=== PATIENT | male | born 2000 | race Caucasian/White ===

== ENCOUNTER 2020-03-16 13:31 | Emergency (ER) | payer MEDICAID ==
[~2020-03-16] VITALS: Ht 154.9 cm; Wt 53.6 kg
[2020-03-16 14:06] VITALS: BP 113/68
--- NOTE | 2020-03-16 17:21 | NUR ---
Patient called back x3 and not in lobby. Attempted to call patient, no listed phone number.
== END 2020-03-16 17:21 | disposition left against medical advice (07) ==
LOC: ER 13:32
DX: S61.212A Laceration without foreign body of right middle finger without damage to nail, initial encounter (principal); S61.214A Laceration without foreign body of right ring finger without damage to nail, initial encounter; Z53.21 Procedure and treatment not carried out due to patient leaving prior to being seen by health care provider; X58.XXXA Exposure to other specified factors, initial encounter; Y93.89 Activity, other specified; Y92.89 Other specified places as the place of occurrence of the external cause; Y99.8 Other external cause status

== ENCOUNTER 2020-03-22 00:29 | Emergency (ER) | payer MEDICAID ==
[~2020-03-22] VITALS: Ht 177.8 cm; Wt 61.4 kg
[2020-03-22] MEDS ORDERED: SULF1TAB49 PO (00:59)
[2020-03-22] MEDS ORDERED: sulfamethoxazole/trimethoprim DS (800/160mg) tablet PO ONE (01:00)
[2020-03-22 01:08] VITALS: BP 117/81
== END 2020-03-22 01:10 | disposition home or self-care (01) ==
LOC: ER 00:29
DX: S61.212A Laceration without foreign body of right middle finger without damage to nail, initial encounter (principal); S61.214A Laceration without foreign body of right ring finger without damage to nail, initial encounter; L03.113 Cellulitis of right upper limb; W22.8XXA Striking against or struck by other objects, initial encounter; Y93.89 Activity, other specified; Y92.89 Other specified places as the place of occurrence of the external cause; Y99.9 Unspecified external cause status
CPT/HCPCS: 99283

== ENCOUNTER 2022-05-02 11:42 | Emergency (ER) | payer MEDICAID ==
[~2022-05-02] VITALS: Ht 177.8 cm; Wt 61.4 kg
[2022-05-02 11:43] VITALS: BP 129/76
[2022-05-02 12:06] LABS: CLARITY,URINE TURBID (Clear); COLOR,URINE YELLOW (Yellow); GLUCOSE, URINE NEGATIVE (Neg); KETONES,URINE NEGATIVE (Neg); LEUKOCYTE ESTERASE ,URINE LARGE (Neg); NITRITES, URINE NEGATIVE (Neg); OCCULT BLOOD,URINE LARGE (Neg); PROTEIN,URINE 100 mg/dl (Neg); UROBILINOGEN,URINE 0.2 E.U/dL (0.2-1.0)
[2022-05-02 12:24] LABS: UA COLLECTION TYPE VOIDED
[2022-05-02 12:27] LABS: BACTERIA,URINE 1+ /HPF (Neg); WBC,URINE TNTC /HPF (0-4)
[2022-05-02 12:28] LABS: SQUAMOUS EPITHELIAL CELL,UR FEW /LPF (FEW); WBC CLUMPS,URINE MANY /HPF (NEGATIVE)
== END 2022-05-02 14:27 | disposition left against medical advice (07) ==
LOC: ER 11:42
DX: N39.0 Urinary tract infection, site not specified (principal); Z53.21 Procedure and treatment not carried out due to patient leaving prior to being seen by health care provider
CPT/HCPCS: 81001; 87077; 87088; 87186

== ENCOUNTER 2025-08-10 12:16 | Emergency (ER) | payer MEDICAID ==
[~2025-08-10] VITALS: Ht 180.3 cm; Wt 60.5 kg
[2025-08-10 12:56] VITALS: BP 137/95; PULSE 99; RESP 18; TEMP 97.8; O2SAT 100
[2025-08-10] MEDS ORDERED: CEPH-585 PO (14:15)
[2025-08-10] MEDS ORDERED: SULF1TAB49 PO (14:15)
[2025-08-10] MEDS ORDERED: MUPI22OI30 TOP (14:15)
[2025-08-10] MEDS ORDERED: CHLO118L3 TOP (14:15)
--- NOTE | 2025-08-10 14:15 | Physician Documentation ---
History of Present Illness ~ Chief Complaint: Abscess Stated Complaint: CELLULITIS Time Seen by MD: 14:05 OK to notify your PCP?: Yes Primary Medical Doctor: None Source: patient Mode of Arrival: POV Exam Limitations: no limitations HPI This is a 24-year-old male who comes in for multiple wounds with the bilateral hands. The patient states he has been getting these lately and they do not seem to be healing as fast as he would expect. He is not complaining of any significant pain. He says he does get purulent discharge from the wounds. He denies fevers or chills. Aside from the hands he denies any other area with wounds. Tetanus Within 5 Years: No Medication Reconciliation Allergies: Coded Allergies: No Known Allergies (Unverified , 08/10/25) Past Medical History Past Medical History: No Pertinent History Past Surgical History: no surgical history Lives In: Home Physical Exam Vital Signs: Temperature: 97.8, Source: Temporal, Heart Rate: 99, Respiratory Rate: 18, BP: 137/95, Pulse Oximetry: 100, Weight: 60.500 Pulse Oximetry Reflects: adequate oxygenation General Appearance: alert, WD/WN, no apparent distress EENT: normal ENT inspection Skin To inspection of the hands the patient has a few superficial appearing furuncles. The patient has liquid bandages placed over the top of them. They all feel firm. There and various stages of healing. No obvious fluctuance or deep fluid collection that needs to be drained. No fusiform erythema edema of the fingers. No range of motion deficits of the fingers. Outer radial pulses are 2+ and cap refill less than 2 seconds and brisk in the digits of the bilateral upper extremities. Progress Results/Orders Reviewed/noted all lab results: Yes Results/Orders Vital Signs 08/10/25 12:56 Temp 97.8 Pulse 99 Resp 18 B/P (MAP) 137/95 Pulse Ox 100 Medical Decision Making Additional information obtaine: N/A Findings The patient's main issue in his hygiene. His clothes and hands or heavily soiled has a patient is homeless. I am going to prescribe him Bactroban to apply topically, chlorhexidine soap, Bactrim DS and Keflex. You can follow up with the primary care physician for recheck in the next one or two days and return to the ER if he has any worsening or concerning symptoms. Differential Dx:Considerations: Include: Abscess, Bacteremia, Cellulitis, Felon, Impetigo Additional Comment Cellulitis. Continues to abscess. Furuncle. Staph infection. Departure Disposition: HOME / SELF CARE / HOMELESS Impression: Primary Impression: Abscess Condition: Stable Discharge Instructions: Abscess, Care After Additional Instructions: I will prescribe chlorhexidine soap to wash the areas with the once or twice a day, apply the topical cream and take the oral antibiotics as prescribed. Try to keep your hands that has again cleaned as best you can. Follow up with the primary care physician for recheck in the next one or two days and return to the ER for any worsening or concerning symptoms. Referrals: NO PRIMARY CARE PROVIDER (PCP) Prescriptions Mupirocin* (Bactroban*) 22 Gm Tube 1 APPLIC TOP Q8H for 7 Days, #22 GM apply to affected area(s) Prov: YUMIKO GARCIA 08/10/25 Cephalexin*Monohydrate* (Keflex*) 500 Mg Capsule 1 CAP PO Q6H for 10 Days, #40 CAP Prov: YUMIKO GARCIA 08/10/25 Sulfamethoxazole/Trimethoprim (Bactrim Ds Tablet) 800 Mg-160 Mg Tablet 1 TAB PO Q12H for 10 Days, #20 TAB Prov: YUMIKO GARCIA 08/10/25 Chlorhexidine Gluconate (Chlorhexidine Gluconate) 4 % Liquid 1 APPLIC TOP DAILY for 2 Days, #237 ML 0 Refills DIRECTED Prov: YUMIKO GARCIA 08/10/25 Signature Scribe Signature: No scribe Attestation: The note accurately reflects work and decisions made by me.Yumiko RUANO 08/10/25 14:15 YUMIKO GARCIA Aug 10, 2025 14:15
== END 2025-08-10 14:25 | disposition home or self-care (01) ==
LOC: ER 12:17
DX: L02.414 Cutaneous abscess of left upper limb (principal); L02.413 Cutaneous abscess of right upper limb
CPT/HCPCS: 99283